=== PATIENT | female | born 1950 | race Caucasian/White ===

== ENCOUNTER → 2017-11-17 | Outpatient (CLI) | payer MEDICARE, BC ==
[~2017-11-17] MED LIST: BLACK COHOSH40 M1 PO; CALCIUM; CENTRUM SILVER1 EAC1; CYCLOBENZAPRINE; FOSAMAX; KLOR-CON 1010 MEQ PO; LISINOPRIL; LISINOPRIL10 MG PO; MEDROLDOSEPACK PO; MOVANA300 MG PO; NOLVADEX20 MG PO; PERCOCET 5-3251 EACH PO; TAMOXIFEN; TUMS PO; VITAMIN D-32000 UNIT; VITAMIN D3400 UNIT PO; ZYRTEC10 M5 PO; [UNRECOGNIZED DRUG - OTHER]
== END ==
LOC: M.ULTRA 10:42
DX: R22.32 Localized swelling, mass and lump, left upper limb (principal)